=== PATIENT | male | born 1995 | race Caucasian/White ===

== ENCOUNTER 2018-06-01 10:05 | Emergency (ER) | payer BC, OTHER ==
[~2018-06-01] VITALS: Ht 172.7 cm; Wt 56.7 kg
--- NOTE | 2018-06-01 10:34 | NUR ---
Patient discharged to home in stable conditon. Written and verbal after care instructions given. Patient verbalizes understanding of instructions.
== END 2018-06-01 10:35 | disposition home or self-care (01) ==
LOC: ER 10:05
DX: S01.01XA Laceration without foreign body of scalp, initial encounter (principal); W01.198A Fall on same level from slipping, tripping and stumbling with subsequent striking against other object, initial encounter; Y93.89 Activity, other specified; Y92.89 Other specified places as the place of occurrence of the external cause; Y99.8 Other external cause status
CPT/HCPCS: 12001; 99283; A4217; A4663

== ENCOUNTER 2020-11-12 18:03 | Emergency (ER) | payer BC ==
[~2020-11-12] VITALS: Ht 172.7 cm; Wt 59.0 kg
--- NOTE | 2020-11-12 18:17 | NUR ---
Dr Fernandez at the bedside for MSE.
[2020-11-12] MEDS ORDERED: NEOMY/BACITRA/POLYMYXIN B OINT UD PACKET TP ONE ×2 (18:38→18:45)
[2020-11-12 18:45] VITALS: BP 123/74
[2020-11-12] MEDS ORDERED: LIDOCAINE VISCUS 2% 15 ML UDC XX ONE (18:45)
[2020-11-12] MEDS ORDERED: LIDOCAINE HCL 2% 20 ML VIAL IJ ONE (18:45)
--- NOTE | 2020-11-12 18:45 | NUR ---
Patient discharged to home in stable condition. Written and verbal after care instructions given. Patient verbalizes understanding of instructions. Stressed follow up or return to ER for worsening s/s.
== END 2020-11-12 18:46 | disposition home or self-care (01) ==
LOC: ER 18:03
DX: S61.210A Laceration without foreign body of right index finger without damage to nail, initial encounter (principal); W26.8XXA Contact with other sharp object(s), not elsewhere classified, initial encounter; Y93.89 Activity, other specified; Y99.8 Other external cause status
CPT/HCPCS: 12001; 99282; J3490; A4663

== ENCOUNTER 2020-11-25 10:38 | Emergency (ER) | payer BC ==
[~2020-11-25] VITALS: Ht 175.3 cm; Wt 68.0 kg
--- NOTE | 2020-11-25 10:45 | NUR ---
Dr Coy at bedside for MSE, and treatment.
--- NOTE | 2020-11-25 11:05 | NUR ---
Suture removed by MD on R hand, pointer finger, patient tolerated the treatment. Per MD's instructions ,educated patient on how to immobilize finger with kerlix wrap and keep wound clean and dry until completely healed. Written and verbal after care instructions given. Patient verbalizes understanding of instructions. Stressed follow up or return to ER for worsening s/s. Patient discharged to home in stable condition, ambulated out of ED in steady gait.
[2020-11-25 11:21] VITALS: BP 115/70
== END 2020-11-25 11:10 | disposition home or self-care (01) ==
LOC: ER 10:38
DX: S61.211D Laceration without foreign body of left index finger without damage to nail, subsequent encounter (principal); X58.XXXD Exposure to other specified factors, subsequent encounter
CPT/HCPCS: A4663